=== PATIENT | female | born 1960 | race Caucasian/White ===

== ENCOUNTER → 2018-05-03 | Outpatient (CLI) | payer BC | LOC: FIMAGING 09:32 | PROVIDERS: ATTEND Radiology Diagnostic Radiology | DX: I83.812 Varicose veins of left lower extremity with pain (principal) ==

== ENCOUNTER 2018-08-17 07:17 | Day surgery (SDC) | payer BC ==
[2018-08-17] MEDS ORDERED: fentaNYL 100 MCG/2 ML INJ IVP PRN (07:44)
[2018-08-17] MEDS ORDERED: MIDAZOLAM 2 MG/2 ML VIAL IVP PRN (07:44)
[2018-08-17] MEDS ORDERED: ceFAZolin 2 GM/DEXTROSE 100 ML IV ONE (07:44)
[2018-08-17] MEDS ORDERED: ONDANSETRON 4 MG/2 ML VIAL IVP ONE (07:44)
[2018-08-17] MEDS ORDERED: MEPERIDINE 25 MG/ML SYR IVP PRN (07:44)
[2018-08-17] MEDS ORDERED: NALOXONE HCL 0.4 MG/ML INJ IVP PRN (07:44)
[2018-08-17] MEDS ORDERED: HEPARIN 10,000 UNIT/10 ML MDV (1,000 UNIT/ML) IVP PRN (07:44)
[2018-08-17] MEDS ORDERED: PROTAMINE SULFATE 50 MG/5 ML VIAL IVP PRN (07:44)
[2018-08-17] MEDS ORDERED: GLUCAGON HCL 1 MG VIAL IVP PRN (07:44)
[2018-08-17] MEDS ORDERED: FLUMAZENIL 0.5 MG/5 ML MDV IVP PRN (07:44)
[2018-08-17] MEDS ORDERED: NS 1,000 ML IV ONE (07:44)
[2018-08-17] MEDS ORDERED: ALTEPLASE 2 MG VIAL IVP PRN (07:44)
[2018-08-17] MEDS ORDERED: LIDO/EPI 1% **for epidural** 30 ML SDV ONE (07:47)
[2018-08-17] MEDS ORDERED: POLIDOCANOL IV ONE (07:48)
[2018-08-17] MEDS ORDERED: POLIDOCANOL 0.5% 2 ML AMP IV ONE (09:33)
[2018-08-17] MEDS ORDERED: SODIUM TETRADECYL SULFATE 3% 2 ML VIAL IV ONE (09:37)
[2018-08-17] MEDS ORDERED: ONDANSETRON DISINTEGRATING 4 MG TAB PO PRN (11:08)
[2018-08-17] MEDS ORDERED: IBUPROFEN 200 MG TAB PO ONE ×2 (11:08→11:18)
[2018-08-17] MEDS ORDERED: ONDANSETRON 4 MG/2 ML VIAL IVP PRN (11:08)
[2018-08-17] MEDS ORDERED: HYDROCODONE/APAP 5/325 TAB PO PRN (11:08)
--- NOTE | 2018-08-17 11:09 | PDRADPN ---
Radiology Procedure Note Date of Procedure: 08/17/18 Radiologist: Radha Whitfield Anesthesia: IV Sedation Pre-op Diagnosis: LLE VARICOSE VEINS Post-op Diagnosis: SAME Indication: PAIN SWELLING Procedure: PHLEBECTOMY, SCLEROTHERAPY Inf/Abcess present in the surg proc area at time of surgery?: No
--- NOTE | 2018-08-17 11:10 | PDPROPOC ---
Sedation Plan of Care Sedation Plan of Care: vital signs stable, mental status noted, patient educated of risks, benefits, alternatives, patient can tolerate sedation ASA Classification: ASA 2 Planned drugs: fentanyl, midazolam Mallampati Score: Class 2 Mallampati Reference Image: Patient passed 3-3-2 rule?: Yes
[2018-08-17] MEDS ORDERED: NS 1,000 ML IV SCH (11:15)
--- NOTE | 2018-08-17 11:17 | PDGENHP ---
History & Physical Chief Complaint: LARGE ROPEY LT VARICOSE VEINS History of Present Illness: PAIN AND SWELLING Pertinent Past, Social, Family History: NON SMOKER Relevant Physical Exam: LARGE LLE VEINS MAPPED OUT. Cardiorespiratory Assessment: RRR, CTA
[2018-08-17 13:44] VITALS: BP 106/69
== END 2018-08-17 13:48 | disposition home or self-care (01) ==
LOC: FIMAGING 07:17
PROVIDERS: ATTEND Radiology Diagnostic Radiology
DX: I83.812 Varicose veins of left lower extremity with pain (principal)
CPT/HCPCS: J0690; J2250; J2310; J3010

== ENCOUNTER → 2018-09-13 | Outpatient (CLI) | payer BC | LOC: FIMAGING 12:15 | PROVIDERS: ATTEND Radiology Diagnostic Radiology | DX: Z98.890 Other specified postprocedural states (principal) ==

== ENCOUNTER → 2019-01-05 | Day surgery (SDC) | payer BC ==
[~2019-01-05] MED LIST: LIDO/EPI 1% **for epidural** 30 ML SDV ONE; NA BICARBONATE 50 MEQ/50 ML VIAL ONE; SODIUM TETRADECYL SULFATE 3% 2 ML VIAL IV ONE
== END ==
LOC: FIMAGING 08:44
PROVIDERS: ATTEND Radiology Diagnostic Radiology
PROC: 3E033TZ Introduction of Destructive Agent into Peripheral Vein, Percutaneous Approach (ICD-10-PCS; principal; 2019-01-05)
PROC: 065Q3ZZ Destruction of Left Saphenous Vein, Percutaneous Approach (ICD-10-PCS; principal; 2019-01-05)
DX: I83.813 Varicose veins of bilateral lower extremities with pain (principal); R22.42 Localized swelling, mass and lump, left lower limb

== ENCOUNTER → 2019-01-24 | Outpatient (CLI) | payer BC | LOC: FIMAGING 15:58 ==